=== PATIENT | female | born 1945 | race Caucasian/White ===

== ENCOUNTER 2016-06-23 14:45 | Emergency (ER) | payer OTHER ==
[~2016-06-23] VITALS: Ht 160 cm; Wt 51.1 kg
[~2016-06-23 14:45] MED LIST: ATV/1 PO; CMD5 PO; LEVO25TA PO
[2016-06-23 14:52] VITALS: TEMP 37.2; Ht 160 cm; Wt 51.1 kg
[2016-06-23] MEDS ORDERED: ENOX60IN SQ (15:55)
[2016-06-23] MEDS ORDERED: OMEP20CA9 PO (15:56)
[2016-06-23] MEDS ORDERED: METH500T37 PO (15:56)
[2016-06-23] MEDS ORDERED: PRED20TA PO (15:56)
--- NOTE | 2016-06-23 16:06 | DIAGNOSTIC IMAGING REPORT ---
CERVICAL SPINE CT CT DOSE: 185.77 mGy.cm HISTORY: Trauma. Pain. pain s/p fall TECHNIQUE: Multiaxial CT images of the cervical spine were performed and reformatted in the sagittal and coronal plane without the use of contrast. COMPARISON: None. FINDINGS: No fractures. No subluxation. Prevertebral soft tissues and the C1-C2 interval are intact. No pneumothorax. Moderate degenerative disc changes throughout. No evidence for compression deformity. Posterior arch shows no acute or traumatic. IMPRESSION: Degenerative change. No acute process. Electronically signed by: Fausto Castrejon M.D. 06/23/2016 4:05 PM Dictated Date/Time: 06/23/2016 4:02 PM
--- NOTE | 2016-06-23 16:54 | DIAGNOSTIC IMAGING REPORT ---
RIGHT SHOULDER MIN 2 VIEWS ROUTINE CLINICAL HISTORY: posterior pain s/p fall Right pain. Trauma. COMPARISON: None. DISCUSSION: The bones and joint spaces appear intact. There is no evidence of fracture, dislocation or bony disease. There is no evidence for soft tissue swelling. IMPRESSION: Negative study. Electronically signed by: Fausto Castrejon M.D. 06/23/2016 4:52 PM Dictated Date/Time: 06/23/2016 4:52 PM
--- NOTE | 2016-06-23 17:10 | EMERGENCY ROOM VISIT NOTE ---
ED Visit Note First contact with patient: 15:03 Staff note: I have reviewed the Patients chart and have discussed this case with my PA. I generally agree with the ED note and findings.
[2016-06-23] MEDS ORDERED: TRAM-10 PO (17:18)
--- NOTE | 2016-06-23 17:19 | EMERGENCY ROOM VISIT NOTE ---
History First contact with patient: 15:03 Chief Complaint: SHOULDER PAIN Stated Complaint: PAINFUL SHOULDER History of Present Illness The patient is a 70 year old female who presents to the Emergency Department by private vehicle for evaluation of pain to the RIGHT shoulder. The patient reports that she slipped on the steps well walking the snow 3 weeks ago waning on her back. She did not lose consciousness. She reports that she had immediate pain to the RIGHT shoulder as well as neck. She was seen by her primary care provider's office at the [facility] and was placed on a muscle relaxer. She had persistent pain. She followed up with [facility] and had x- rays performed of the neck and shoulder which were found to be unremarkable. The patient was provided prednisone which she has been taking to this point. She reports that she contacted the [facility] again today because she was having persistent pain. She was directed to the emergency Department for an orthopedic consultation. The patient denies any changes in her symptoms. She rates her current discomfort as a 9/10. The patient denies any headaches, dizziness, lightheadedness, numbness/weakness to extremities, chest pain, palpitations, short of breath, abdominal pain, nausea, or vomiting. Review of Systems A complete 10-point Review of Systems was discussed with the patient, with pertinent positives and negatives listed in the History of Present Illness. All remaining Review of Systems questions can be considered negative unless otherwise specified. Past Medical/Surgical History Medical Problems: (1) Hyperlipidemia Nec/Nos (2) Hyperthyroidism (3) Pulmonary emboli (4) Sinus infection Surgical Problems: (1) History of cholecystectomy Family History Cancer MOTHER BROTHER (lung) Heart disease FATHER MOTHER [place] FATHER MOTHER Social History Smoking Status: Former Smoker Smokeless Tobacco Use: No Alcohol Use: none Drug Use: none Marital Status: single Housing Status: lives alone Occupation Status: retired Current/Historical Medications Scheduled Enoxaparin (Lovenox), 60 MG SQ UD Levothyroxine Sodium (Synthroid), 25 MCG PO DAILY Prednisone (Prednisone), 20 MG PO BID Warfarin Sod (Coumadin), MG PO UD Scheduled PRN Lorazepam (Ativan), 1 MG PO HS PRN for Anxiety/Agitation Methocarbamol (Robaxin), 500 MG PO TID PRN for Muscle Spasms Omeprazole (Prilosec), 20 MG PO DAILY PRN for Heartburn Tramadol (Ultram), 1 TAB PO Q4H PRN for Pain Allergies Coded Allergies: Codeine (Verified Allergy, Mild, 06/23/16) Physical Exam Vital Signs Date Time Temp Pulse Resp B/P Pulse Ox O2 Delivery O2 Flow Rate FiO2 06/23/16 17:31 84 14 106/74 97 06/23/16 14:52 37.2 118 18 147/94 96 Room Air Pain Rating (0-10): 9 Physical Exam VITAL SIGNS - Vital signs and nursing notes were reviewed. GENERAL - 70-year-old female appearing her stated age and in noticeable discomfort throughout the exam. NECK - FROM of the cervical spine. No spinous process or paraspinal muscle tenderness to palpation. No nuchal rigidity. LUNGS - Chest wall symmetric without accessory muscle use, intercostals retractions, or central cyanosis. Normal vesicular breath sounds CTA B/L. No wheezes, rales, or rhonchi appreciated. CARDIAC - RRR with S1/S2. No murmur, rubs, or gallops appreciated. MUSCULOSKELETAL - Active ROM of the RIGHT shoulder was limited in all directions. Greater than 90 of abduction. No step-off deformities of the clavicle were palpable. No tenderness over the AC joint with palpation. No tenderness to palpation at the bicepital insertion. No tenderness to palpation over the deltoid. Tenderness to palpation and muscle spasm noted to the RIGHT rhomboid muscle distribution. NEUROLOGIC - SENSORY: Spinothalamic tract was found to be intact with ability to discriminate sharp versus dull sensation at the level of the RIGHT side of the neck down to the fingertips. No sensory deficits of the dorsal column were appreciated utilizing light touch for evaluation. VASCULAR - Capillary refill was brisk. +3/5 radial pulse palpated. Medical Decision & Procedures ER Provider Diagnostic Interpretation: Radiological imaging and reports were reviewed by myself. Radiologist's Interpretation as follows: RIGHT SHOULDER MIN 2 VIEWS ROUTINE CLINICAL HISTORY: posterior pain s/p fall Right pain. Trauma. COMPARISON: None. DISCUSSION: The bones and joint spaces appear intact. There is no evidence of fracture, dislocation or bony disease. There is no evidence for soft tissue swelling. IMPRESSION: Negative study. CERVICAL SPINE CT CT DOSE: 185.77 mGy.cm HISTORY: Trauma. Pain. pain s/p fall TECHNIQUE: Multiaxial CT images of the cervical spine were performed and reformatted in the sagittal and coronal plane without the use of contrast. COMPARISON: None. FINDINGS: No fractures. No subluxation. Prevertebral soft tissues and the C1-C2 interval are intact. No pneumothorax. Moderate degenerative disc changes throughout. No evidence for compression deformity. Posterior arch shows no acute or traumatic. IMPRESSION: Degenerative change. No acute process. ED Course Patient was seen and evaluate by myself. I had a lengthy conversation with the patient regarding her symptoms. CT of the cervical spine and x-ray of the RIGHT shoulder was obtained. Imaging results as above. Imaging results were discussed with the patient who acknowledges understanding. I did discuss the case with case management who will work on setting the patient up with outpatient follow-up with orthopedic surgery. She was provided Ultram for breakthrough pain at home. She was educated on worrisome symptoms for return visit to the emergency department. Patient discharged home in good condition. Medical Decision Given the patient's presentation and exam findings, I did elect to perform the above-mentioned workup. The patient presents today with ongoing symptoms of pain after sustaining a mechanical fall 3-4 weeks ago. She has no focal neurological deficits. Imaging studies are otherwise unremarkable. The patient does have palpable muscle tenderness on exam. She will be provided pain medication for home and case management set her up with an appointment with orthopedic surgery for continued follow-up. Patient was educated on worrisome symptoms for return visit to the emergency department. Patient discharged home in good condition. In the evaluation and treatment of this patient, the following differential diagnoses were considered: Musculoskeletal Strain, Discitis, Cervical Spine Fracture, Cervical Spine Dislocation, Cervical Spine Subluxation, Cervical Spondylosis, Fibromyalgia, Osteoarthritis, Polymyalgia Rheumatica, Psychogenic Pain Disorder, Tumor of Soft Tissue or Spine, Shoulder Contusion, Shoulder Fracture, Shoulder Dislocation, Thoracic Outlet Syndrome, Adhesive Capsulitis, Rotator Cuff Tear, Proximal Clavicle Head Fracture, Apical Pneumonia, Pneumothorax, Hemothorax, or TB. Impression Primary Impression: Rhomboid muscle strain Additional Impressions: Neck pain Fall Departure Information Dispostion Home / Self-Care Condition GOOD Prescriptions Tramadol (Ultram) 50 Mg Tab 1 TAB PO Q4H Y for Pain, #20 TAB For Initial Treatment Prov: Evin Leo PA-C 06/23/16 Referrals Monica Zuleta M.D. (PCP) Patient Instructions My [facility] Additional Instructions You have been treated in the Emergency Department for Shoulder Pain. You have been prescribed Ultram to be used for pain control. You cannot drive or consume alcohol while on this medicine. This medicine should only be used for pain that cannot be controlled with [id number] pain medicines. For pain control, you can use the following [id number] medicines (if >12 yo): - Regular strength (325mg/tab) Tylenol (acetaminophen) 2 tabs every 4-6 hours as needed. Do not exceed 12 tablets in a 24 hour period. Avoid taking more than 4 grams (4000 mg) of Tylenol per day. This includes any other sources of acetaminophen you may take on a regular basis. - Regular strength (200 mg/tab) Advil (ibuprofen) 1-2 tabs every 4-6 hours as needed. Do not exceed a dose of 3200 mg per day. If this is a recent injury (<24 hrs), ice can be applied to the area of pain for the first 3 days to help decrease pain and inflammation. Follow-up with orthopedic surgery as discussed. Return to the Emergency Department if your current symptoms worsen despite treatment course outlined above, or if you develop any of the following symptoms : intractable pain despite aforementioned treatment course or new onset of numbness or tingling of the arm. Problem Qualifiers Primary Impression: Rhomboid muscle strain Encounter type: initial encounter Qualified Codes: S29.012A - Strain of muscle and tendon of back wall of thorax, initial encounter Additional Impressions: Fall Encounter type: initial encounter Qualified Codes: W19.XXXA - Unspecified fall, initial encounter
[2016-06-23 17:31] VITALS: BP 106/74; PULSE 84; O2SAT 97
== END 2016-06-23 17:32 | disposition home or self-care (01) ==
LOC: C.EDB 14:46 → C.EDC 17:32
DX: S46.811A Strain of other muscles, fascia and tendons at shoulder and upper arm level, right arm, initial encounter (principal); M54.2 Cervicalgia; W00.0XXA Fall on same level due to ice and snow, initial encounter; E78.5 Hyperlipidemia, unspecified; E05.90 Thyrotoxicosis, unspecified without thyrotoxic crisis or storm; Z86.711 Personal history of pulmonary embolism; Z82.49 Family history of ischemic heart disease and other diseases of the circulatory system; Z80.9 Family history of malignant neoplasm, unspecified; Z87.891 Personal history of nicotine dependence; Z79.01 Long term (current) use of anticoagulants; Z79.52 Long term (current) use of systemic steroids; Z79.899 Other long term (current) drug therapy

== ENCOUNTER 2016-12-04 14:08 | Observation (INO) | payer OTHER ==
[~2016-12-04] VITALS: Ht 162.6 cm; Wt 53.8 kg
[~2016-12-04 14:08] MED LIST changes: +ENOX60IN SQ; +METH500T37 PO; +OMEP20CA9 PO; +PRED20TA PO; +TRAM-10 PO
[2016-12-04] MEDS ORDERED: SODIUM CHLORIDE 0.9% 1000ML 1,000 ML IV STA (14:24)
[2016-12-04] MEDS ORDERED: SODIUM CHLORIDE 0.9% 1000ML 250 ML IV STA (14:24)
[2016-12-04] MEDS ORDERED: CYAN500T PO (14:30)
[2016-12-04] MEDS ORDERED: RIVA1TAB4 PO (14:30)
[2016-12-04] MEDS ORDERED: ACET-1256 PO (14:30)
[2016-12-04 14:47] LABS: HEMATOCRIT 38.2 % (37-47); MEAN CELL VOLUME 93.9 fL (80-100); MEAN CORPUSCULAR HEMOGLOBIN 33.2 pg (25-34); MEAN CORPUSCULAR HGB CONC 35.3 g/dl (32-36); MEAN PLATELET VOLUME 9.1 fL (7.4-10.4); PLATELET COUNT 133 K/uL (130-400); RED BLOOD COUNT 4.07 M/uL (4.2-5.4); WHITE BLOOD COUNT 9.28 K/uL (4.8-10.8)
--- NOTE | 2016-12-04 14:49 | EMERGENCY ROOM VISIT NOTE ---
History Report prepared by Singh: Lj Alvarez Under the Supervision of: Dr. Raffi Tony M.D. First contact with patient: 14:17 Chief Complaint: WEAKNESS Stated Complaint: WEAKNESS History of Present Illness The patient is a 70 year old female who presents to the Emergency Room with complaints of constant right sided weakness occurring prior to arrival. The patient states that she got right shoulder surgery for a torn rotator cuff. The patient states that she was under anesthesia and she had a block in the neck. The patient states that she felt fine prior to surgery around 1030 this morning , and she states that afterwards she was worried about a facial droop, and she was having some right sided weakness and numbness. The patient additionally states that she has been nauseous. The patient denies any chest pain shortness of breath, trouble swallowing, and headache. The patient states that she is usually on blood thinners for blood clots in the lungs, though she stopped them for surgery. Source of History: patient, treating provider Onset: prior to arrival Position: other (right side) Quality: other (weakness) Timing: constant Associated Symptoms: + nausea, + weakness, + numbness, No headache, No SOB Review of Systems See HPI for pertinent positives & negatives. A total of 10 systems reviewed and were otherwise negative. Past Medical & Surgical Medical Problems: (1) Hyperlipidemia Nec/Nos (2) Hyperthyroidism (3) Pulmonary emboli (4) Right sided weakness (5) Sinus infection Surgical Problems: (1) History of cholecystectomy Old medical records were reviewed. Nurse's notes were reviewed and I agree with. Family History Cancer MOTHER BROTHER (lung) Heart disease FATHER MOTHER [place] FATHER MOTHER Social History Smoking Status: Former Smoker Alcohol Use: none Drug Use: none Marital Status: single Housing Status: lives alone Occupation Status: retired Current/Historical Medications Scheduled Acetaminophen (Tylenol), 500 MG PO DIRECTED Cyanocobalamin (Vitamin B-12), 500 MCG PO DAILY Levothyroxine Sodium (Synthroid), 25 MCG PO DAILY Rivaroxaban (Xarelto), 20 MG PO DAILY Scheduled PRN Lorazepam (Ativan), 1 MG PO BID PRN for Anxiety/Agitation Methocarbamol (Robaxin), 500 MG PO TID PRN for Muscle Spasms Allergies Coded Allergies: Codeine (Verified Allergy, Mild, 06/23/16) Physical Exam Vital Signs Date Time Temp Pulse Resp B/P (MAP) Pulse Ox O2 Delivery O2 Flow Rate FiO2 12/04/16 17:21 96 Room Air 12/04/16 16:41 90 18 130/79 96 12/04/16 15:14 78 134/85 96 12/04/16 14:29 80 12/04/16 14:18 36.7 79 18 146/91 95 Room Air Physical Exam General: Non-ill appearing older female in no acute distress. HEENT: Normal cephalic atraumatic. Pupils are equal round and reactive to light. Extraocular movements are intact. Oropharynx is pink with moist mucous membranes. No swelling of the mouth lips or tongue. Neck: Supple with a midline trachea. No meningeal signs or stiffness, no JVD or bruits. No Stridor. Chest: Clear to auscultation bilaterally. No wheezes or rhonchi. No increased work of breathing. Heart: regular rate and rhythm. Abdomen: Soft nontender, nondistended without rebound guarding or rigidity. Extremities: Bulky bandage on the right shoulder from shoulder surgery done today. Right hand had some numbness and weakness, but she can squeeze and move her fingers. No cyanosis clubbing or edema. No calf tenderness or assymetry Spine/Back. Non tender to palpation. No CVA tenderness Skin: Good turgor without rashes. Neurologic exam: No significant facial droop or assymetry. Cranial nerves two through 12 are intact. Motor and sensation are intact and symmetrical throughout. Medical Decision & Procedures ER Provider Diagnostic Interpretation: Radiology results as stated below per my review and radiologist interpretation: HEAD WITHOUT CONTRAST (CT) CT DOSE: 638.56 mGycm HISTORY: Mental status change 05/04/2016 eval for CVA TECHNIQUE: Multiaxial CT images of the head were performed without the use of intravenous contrast. A dose lowering technique was utilized adhering to the principles of ALARA. Comparison: 05/04/2016 Findings: The paranasal sinuses and mastoid air cells are clear. The calvarium and skull base are intact. The ventricles and sulci are within normal limits. There is no mass, hematoma, midline shift, or acute infarct. Mild chronic small vessel change of aging Impression: No acute intracranial abnormality. The above report was generated using voice recognition software. It may contain grammatical, syntax or spelling errors. Electronically signed by: Fausto Castrejon M.D. 12/04/2016 3:16 PM Dictated Date/Time: 12/04/2016 3:14 PM CHEST ONE VIEW PORTABLE CLINICAL HISTORY: Atypical chest pain COMPARISON STUDY: 05/04/2016 FINDINGS: The cardiac and mediastinal contours are normal. There is no evidence of focal pulmonary consolidation. There is no evidence of failure. No pleural effusions are visualized.[ IMPRESSION: No active disease in the chest. Electronically signed by: Gian Arroyo M.D. 12/04/2016 2:50 PM Dictated Date/Time: 12/04/2016 2:50 PM Laboratory Results 12/04/16 14:31 Red Blood Count 4.07, Mean Corpuscular Volume 93.9, Mean Corpuscular Hemoglobin 33.2, Mean Corpuscular Hemoglobin Concent 35.3, Mean Platelet Volume 9.1, Neutrophils (%) (Auto) 90.8, Lymphocytes (%) (Auto) 7.1, Monocytes (%) (Auto) 1.4, Eosinophils (%) (Auto) 0.2, Basophils (%) (Auto) 0.3, Neutrophils # (Auto) 8.42, Lymphocytes # (Auto) 0.66, Monocytes # (Auto) 0.13, Eosinophils # (Auto) 0.02, Basophils # (Auto) 0.03 12/04/16 14:31 Test 12/04/16 14:31 12/04/16 14:38 White Blood Count 9.28 K/uL (4.8-10.8) Red Blood Count 4.07 M/uL (4.2-5.4) Hemoglobin 13.5 g/dL (12.0-16.0) Hematocrit 38.2 % (37-47) Mean Corpuscular Volume 93.9 fL (80-100) Mean Corpuscular Hemoglobin 33.2 pg (25-34) Mean Corpuscular Hemoglobin Concent 35.3 g/dl (32-36) Platelet Count 133 K/uL (130-400) Mean Platelet Volume 9.1 fL (7.4-10.4) Neutrophils (%) (Auto) 90.8 % Lymphocytes (%) (Auto) 7.1 % Monocytes (%) (Auto) 1.4 % Eosinophils (%) (Auto) 0.2 % Basophils (%) (Auto) 0.3 % Neutrophils # (Auto) 8.42 K/uL (1.4-6.5) Lymphocytes # (Auto) 0.66 K/uL (1.2-3.4) Monocytes # (Auto) 0.13 K/uL (0.11-0.59) Eosinophils # (Auto) 0.02 K/uL (0-0.5) Basophils # (Auto) 0.03 K/uL (0-0.2) RDW Standard Deviation 42.1 fL (36.4-46.3) RDW Coefficient of Variation 12.3 % (11.5-14.5) Immature Granulocyte % (Auto) 0.2 % Immature Granulocyte # (Auto) 0.02 K/uL (0.00-0.02) Prothrombin Time 10.3 SECONDS (9.0-12.0) Prothromb Time International Ratio 1.0 (0.9-1.1) Activated Partial Thromboplast Time 23.4 SECONDS (21.0-31.0) Partial Thromboplastin Ratio 0.9 Anion Gap 5.0 mmol/L (3-11) Est Creatinine Clear Calc Drug Dose 60.4 ml/min Estimated GFR () 92.0 Estimated GFR (Non- 79.3 BUN/Creatinine Ratio 21.9 (10-20) Calcium Level 8.5 mg/dl (8.5-10.1) Total Bilirubin 0.4 mg/dl (0.2-1) Direct Bilirubin < 0.1 mg/dl (0-0.2) Aspartate Amino Transf (AST/SGOT) 23 U/L (15-37) Alanine Aminotransferase (ALT/SGPT) 34 U/L (12-78) Alkaline Phosphatase 59 U/L (45-117) Total Protein 7.2 gm/dl (6.4-8.2) Albumin 3.9 gm/dl (3.4-5.0) Lipase 169 U/L (73-393) Bedside Troponin I < 0.030 ng/ml (0-0.045) Laboratory studies as stated above per my review. Medications Administered Medications (Trade) Dose Ordered Sig/Lucas Route Start Time Stop Time Status Last Admin Dose Admin Sodium Chloride 1,000 ml @ 100 mls/hr Q10H STAT IV 12/04/16 14:24 12/05/16 00:23 12/04/16 14:24 100 MLS/HR ED Course 1417: Past medical records reviewed. The patient was evaluated in room A4, and a complete history and physical examination were performed. 1424: Sodium Chloride 1000 ml @ 100 mls/hr IV, Sodium Chloride 250 ml @ 999 mls/ hr IV 1450: I revaluated the patient, and she was resting. 1531: Aspirin Chew 324mg PO 1542: Discussed the patient's case with Dr. Haley. The patient will be evaluated for further management. Medical Decision Differentials include, but are not limited to; CVA, complication from anesthesia , TIA, electrolyte or metabolic abnormality. This patient comes in as described above. She was placed in room A4. She is here for treatment and evaluation of numbness in the right side of her face and weakness. She also has numbness right arm this occurred after surgery today on her right shoulder. She had general anesthesia and a local block. No chest pain or shortness of breath. Her face seems to be doing better. It is difficult to assess her arm because she had a nerve block. CAT scan of her head was unremarkable. She has a normal neurologic exam at this point except for the tingling in her arm and may be some minimal residual changes on the right side of the face. I do not think she is a TPA candidate as she has had surgery today and her symptoms are better. I think most likely her from the injection and it may have been that the lidocaine did migrate up into her face and potentially numbed facial nerve a little bit. She's had nothing shows acute coronary syndrome or arrhythmia infection. I do think she needs to be admitted for observation tonight. I did order aspirin 324 mg chewable. She will be admitted for further treatment and evaluation. Medication Reconcilliation Current Medication List: was personally reviewed by me Blood Pressure Screening Patient's blood pressure: Normal blood pressure Consults Time Called: 1537 Consulting Physician: Dr. Haley Returned Call: [phone] Discussed the patient's case with Dr. Haley. The patient will be evaluated for further management. Impression Primary Impression: Right facial numbness Additional Impression: Status post shoulder surgery Scribe Attestation The scribe's documentation has been prepared under my direction and personally reviewed by me in its entirety. I confirm that the note above accurately reflects all work, treatment, procedures, and medical decision making performed by me. Departure Information Dispostion Being Evaluated By Hospitalist Referrals Monica Zuleta M.D. (PCP) Patient Instructions My [facility] Problem Qualifiers
[2016-12-04 14:55] LABS: PARTIAL THROMBOPLASTIN RATIO 0.9; PROTHROMBIN TIME (PATIENT) 10.3 SECONDS (9.0-12.0)
[2016-12-04 15:06] LABS: ALT/SGPT 34 U/L (12-78); BLOOD UREA NITROGEN 17 mg/dl (7-18); BUN/CREATININE RATIO 21.9 (10-20); CALCIUM 8.5 mg/dl (8.5-10.1); CARBON DIOXIDE 26 mmol/L (21-32); CHLORIDE 108 mmol/L (98-107); CREATININE 0.77 mg/dl (0.60-1.20); GLUCOSE 122 mg/dl (70-99); POTASSIUM 3.8 mmol/L (3.5-5.1); SODIUM 139 mmol/L (136-145)
[2016-12-04 15:09] LABS: ALKALINE PHOSPHATASE 59 U/L (45-117); AST/SGOT 23 U/L (15-37)
[2016-12-04 15:11] LABS: BASO % 0.3 %; BASO ABS # 0.03 K/uL (0-0.2); COMPLETE YES; EOS % 0.2 %; IG% 0.2 %; LYMPH % 7.1 %; LYMPH ABS # 0.66 K/uL (1.2-3.4); MONO % 1.4 %; NEUT % 90.8 %
--- NOTE | 2016-12-04 15:17 | DIAGNOSTIC IMAGING REPORT ---
HEAD WITHOUT CONTRAST (CT) CT DOSE: 638.56 mGycm HISTORY: Mental status change 05/04/2016 eval for CVA TECHNIQUE: Multiaxial CT images of the head were performed without the use of intravenous contrast. A dose lowering technique was utilized adhering to the principles of ALARA. Comparison: 05/04/2016 Findings: The paranasal sinuses and mastoid air cells are clear. The calvarium and skull base are intact. The ventricles and sulci are within normal limits. There is no mass, hematoma, midline shift, or acute infarct. Mild chronic small vessel change of aging Impression: No acute intracranial abnormality. The above report was generated using voice recognition software. It may contain grammatical, syntax or spelling errors. Electronically signed by: Fausto Castrejon M.D. 12/04/2016 3:16 PM Dictated Date/Time: 12/04/2016 3:14 PM
[2016-12-04] MEDS ORDERED: ASPIRIN 81 MG CHEW PO STA (15:31)
[2016-12-04 17:21] VITALS: O2SAT 96; Ht 162.6 cm; Wt 53.8 kg
[2016-12-04] MEDS ORDERED: METHOCARBAMOL 500 MG TAB PO PRN (17:45)
[2016-12-04] MEDS ORDERED: LORAZEPAM 1 MG TAB PO PRN (17:45)
[2016-12-04] MEDS ORDERED: IV FLUIDS COMPLETED PRN (18:15)
[2016-12-04 19:00] VITALS: BP 143/85; PULSE 91; TEMP 36.5; O2SAT 96
[2016-12-04] MEDS ORDERED: NSS + 20MEQ KCL 1000ML 1,000 ML IV SCH (19:30)
--- NOTE | 2016-12-04 19:47 | Medical Student: [facility] ---
Med Student History & Physical Date & Time of Service: Dec 04, 2016 at 19:41 Chief Complaint: Right Sided Weakness Primary Care Physician: No Doctor, Assigned History of Present Illness Source: patient This is a 70yo female with a history of pulmonary embolism on anticoagulation, hypothyroidism and vertigo who presented to the ED for weakness/ambulatory dysfunction following rotator cuff surgery earlier today with Dr. Johnson. As she was walking to the bathroom with a nurse after surgery, she was observed to be veering off to her right side and developed a right-sided facial droop. She had no loss of consciousness, focal weakness or slurring of speech. She did receive a nerve block at the right upper extremity for surgery. Head CT negative. She has been on Xarelto since March 2016 for incidental findings of pulmonary emobli. Past Medical/Surgical History Medical Problems: (1) Dehydration Status: Acute (2) Fall Status: Acute (3) Headache Status: Acute (4) Neck pain Status: Acute (5) Pulmonary embolism Status: Acute (6) Rhomboid muscle strain Status: Acute (7) Right facial numbness Status: Acute Social History Problems: (1) Status post shoulder surgery Status: Acute Social History Smoking Status: Former Smoker Alcohol Use: none Drug Use: none Marital Status: single Housing status: lives alone (2-story house in [place] with 5+ steps to enter ) Occupational Status: retired Allergies Coded Allergies: Codeine (Verified Allergy, Mild, 06/23/16) Medications Acetaminophen (Tylenol), 500 MG PO DIRECTED Cyanocobalamin (Vitamin B-12), 500 MCG PO DAILY Levothyroxine Sodium (Synthroid), 25 MCG PO DAILY Lorazepam (Ativan), 1 MG PO BID PRN for Anxiety/Agitation Methocarbamol (Robaxin), 500 MG PO TID PRN for Muscle Spasms Rivaroxaban (Xarelto), 20 MG PO DAILY Review of Systems Constitutional: No fever, No chills Eyes: No worsening of vision, No diplopia ENT: No sore throat, No trouble swallowing Respiratory: No cough, No wheezing, No shortness of breath Cardiovascular: No chest pain, No palpitations Abdomen: No pain, No nausea, No vomiting Musculoskeletal: + joint pain (right posterior shoulder pain), No calf pain Genitourinary - Female: No urinary frequency, No urinary urgency, No urinary incontinence Neurologic: + numbness/tingling (right arm and hand), + vertigo, No paralysis Physical Exam Vital Signs (24 Hours) Date Time Temp Pulse Resp B/P (MAP) Pulse Ox O2 Delivery O2 Flow Rate FiO2 12/04/16 18:21 92 16 131/84 96 12/04/16 17:21 96 Room Air 12/04/16 16:41 90 18 130/79 96 12/04/16 15:14 78 134/85 96 12/04/16 14:29 80 12/04/16 14:18 36.7 79 18 146/91 95 Room Air General Appearance: + mild distress, + thin Head: normocephalic, atraumatic Eyes: normal inspection, PERRL, EOMI ENT: normal ENT inspection, hearing grossly normal, pharynx normal, + pertinent finding (missing upper dentures) Neck: supple, no adenopathy, no carotid bruits Respiratory/Chest: lungs clear, normal breath sounds, no respiratory distress, no accessory muscle use Cardiovascular: regular rate, rhythm, no gallop, no murmur, normal peripheral pulses Abdomen/GI: normal bowel sounds, non tender, soft Extremities/Musculoskelatal: normal inspection, no calf tenderness Neurologic/Psych: sales hunter II-XII nml as tested, no motor/sensory deficits, alert, normal mood/affect, oriented x 3 Cranial nerves I: not tested II, III, IV, : PERRLA, EOMI V: sensation intact and symmetrical V1, V2, V3 VII: symmetrical, no facial droop VIII: hearing grossly intact bilaterally IX, X: swallow grossly intact, phonation normal XI: shoulder shrug not tested, able to turn head both directions XII: tongue protrudes in the midline Strength: RUE: not tested LUE: 5/5 all muscle groups RLE: 5/5 all muscle groups LLE: 5/5 all muscle groups Sensation: grossly intact BUE and BLE Reflexes: RUE not tested LUE 2+ biceps, triceps, brachioradialis RLE: 2+ patellar and Achilles reflexes LLE 2+ patellar and Achilles reflexes Cerebellar: Normal [id number] Romberg not tested Gait: Not tested Diagnostics Laboratory Results Results Past 24 Hours Test 12/04/16 14:31 12/04/16 14:38 Range/Units White Blood Count 9.28 4.8-10.8 K/uL Red Blood Count 4.07 4.2-5.4 M/uL Hemoglobin 13.5 12.0-16.0 g/dL Hematocrit 38.2 37-47 % Mean Corpuscular Volume 93.9 80-100 fL Mean Corpuscular Hemoglobin 33.2 25-34 pg Mean Corpuscular Hemoglobin Concent 35.3 32-36 g/dl Platelet Count 133 130-400 K/uL Mean Platelet Volume 9.1 7.4-10.4 fL Neutrophils (%) (Auto) 90.8 % Lymphocytes (%) (Auto) 7.1 % Monocytes (%) (Auto) 1.4 % Eosinophils (%) (Auto) 0.2 % Basophils (%) (Auto) 0.3 % Neutrophils # (Auto) 8.42 1.4-6.5 K/uL Lymphocytes # (Auto) 0.66 1.2-3.4 K/uL Monocytes # (Auto) 0.13 0.11-0.59 K/uL Eosinophils # (Auto) 0.02 0-0.5 K/uL Basophils # (Auto) 0.03 0-0.2 K/uL RDW Standard Deviation 42.1 36.4-46.3 fL RDW Coefficient of Variation 12.3 11.5-14.5 % Immature Granulocyte % (Auto) 0.2 % Immature Granulocyte # (Auto) 0.02 0.00-0.02 K/uL Prothrombin Time 10.3 9.0-12.0 SECONDS Prothromb Time International Ratio 1.0 0.9-1.1 Activated Partial Thromboplast Time 23.4 21.0-31.0 SECONDS Partial Thromboplastin Ratio 0.9 Sodium Level 139 136-145 mmol/L Potassium Level 3.8 3.5-5.1 mmol/L Chloride Level 108 98-107 mmol/L Carbon Dioxide Level 26 21-32 mmol/L Anion Gap 5.0 3-11 mmol/L Blood Urea Nitrogen 17 7-18 mg/dl Creatinine 0.77 0.60-1.20 mg/dl Est Creatinine Clear Calc Drug Dose 60.4 ml/min Estimated GFR () 92.0 Estimated GFR (Non- 79.3 BUN/Creatinine Ratio 21.9 10-20 Random Glucose 122 70-99 mg/dl Calcium Level 8.5 8.5-10.1 mg/dl Total Bilirubin 0.4 0.2-1 mg/dl Direct Bilirubin < 0.1 0-0.2 mg/dl Aspartate Amino Transf (AST/SGOT) 23 15-37 U/L Alanine Aminotransferase (ALT/SGPT) 34 12-78 U/L Alkaline Phosphatase 59 45-117 U/L Total Protein 7.2 6.4-8.2 gm/dl Albumin 3.9 3.4-5.0 gm/dl Lipase 169 73-393 U/L Bedside Troponin I < 0.030 0-0.045 ng/ml Impression Assessment and Plan This is a 70yo female with a history of pulmonary embolism on anticoagulation, hypothyroidism and vertigo who presented to the ED for weakness/ambulatory dysfunction following rotator cuff surgery earlier today. She has since returned to baseline. Head CT was negative for acute intracranial pathology. At this time she will be admitted for observation on the medical floor. Her episode of ambulatory dysfunction was most likely due to post-op weakness though the differential includes stroke, TIA, and chronic back pain. Plan: 1. Weakness/ambulatory dysfunction s/p rotator cuff surgery, on anticoagulation for hx of PE (stopped for surgery) -Neurochecks [id number] -Vitals [id number] -MRI head ordered for 12/05/16 r/o intracranial bleed 2. Hypothyroidism -Levothyroxine 25mcg PO daily 3. Anxiety -PRN Lorazepam 1mg PO BID PRN anxiety 5. Pain -PRN Tylenol 650mg PO [id number] PRN pain -PRN Robaxin 500mg PO TID PRN spasms 6. FEN/GI -vitamin B12 500mcg PO daily 7. Diet -Regular diet 8. DVT prophylaxis -HOLD Xarelto as patient is post-op 9. Disposition -Location: home -Date: 12/05/16 Level of Care Med/Surg Advanced Directives Existing Living Will: No Existing Power of Registration Specialist: No DVT Prophylaxis other (held as patient is post-op and to r/o hemorrhagic stroke) Prophylaxis Contraindication: Surgical contraindication
[2016-12-04 20:29] VITALS: O2SAT 96
[2016-12-04] MEDS: ACETAMINOPHEN 325 MG TAB PO PRN (21:09)
[2016-12-05 00:01] VITALS: BP 117/71; PULSE 90; TEMP 36.3; O2SAT 98
--- NOTE | 2016-12-05 02:54 | History and Physical ---
History & Physical Date & Time of Service: Dec 05, 2016 at 02:39. The patient was examined on 12/04/2016. Chief Complaint: Right Sided Weakness Primary Care Physician: No Doctor, Assigned History of Present Illness Source: patient, hospital records The patient is a 70-year-old female who is referred to the emergency department after having right rotator cuff surgery performed at [facility] with general anesthesia and a nerve block in the neck, and upon awakening was noted to have right arm weakness, right facial droop and difficulty with ambulation. Upon discussion with the patient, she notes a pre-existing facial asymmetry, and does have intermittent issues with ambulation for which she takes meclizine, but she is concerned about the loss of strength and sensation in her right arm. She has had some nausea since awakening. She denies chest pain, shortness of breath, fevers, chills, headache, difficulty with speech, difficulty swallowing, left arm or leg weakness. Past Medical/Surgical History Medical Problems: (1) Hypothyroidism Status: Chronic 2. Vitamin B12 deficiency 3. Pulmonary emboli 4. Hyperlipidemia 5. Chronic anticoagulation with Xarelto Surgical Problems: (1) History of cholecystectomy Status: Resolved Family History Cancer MOTHER BROTHER (lung) Heart disease FATHER MOTHER VA FATHER MOTHER Social History Smoking Status: Former Smoker Smokeless Tobacco Use: No Alcohol Use: none Drug Use: none Marital Status: single Housing status: lives alone (2-story house in [place] with 5+ steps to enter ) Occupational Status: retired Immunizations History of Influenza Vaccine: Unknown History of Tetanus Vaccine?: Unknown History of Pneumococcal: Unknown History of Hepatitis B Vaccine: Unknown Multi-Drug Resistant Organisms History of MDRO: No Allergies Coded Allergies: Codeine (Verified Allergy, Mild, 06/23/16) Home Medications Scheduled Acetaminophen (Tylenol), 500 MG PO DIRECTED Cyanocobalamin (Vitamin B-12), 500 MCG PO DAILY Levothyroxine Sodium (Synthroid), 25 MCG PO DAILY Rivaroxaban (Xarelto), 20 MG PO DAILY Scheduled PRN Lorazepam (Ativan), 1 MG PO BID PRN for Anxiety/Agitation Methocarbamol (Robaxin), 500 MG PO TID PRN for Muscle Spasms Review of Systems The patient denies chest pain, palpitations, shortness of breath, cough, lower extremity swelling, vision change, hearing change, sore throat, fevers, chills, sweats, weight change, vomiting, abdominal pain, pelvic pain, blood in urine or stool, dysuria, urinary frequency or urgency, headache, memory loss, rash, abnormal bruising or bleeding, generalized weakness, generalized arthralgias or myalgias, night sweats, or allergy symptoms. The review of systems is otherwise negative other than for that already noted above, and at least 10 systems have been reviewed. Physical Exam Vital Signs Date Time Temp Pulse Resp B/P (MAP) Pulse Ox O2 Delivery O2 Flow Rate FiO2 12/05/16 00:01 36.3 90 20 117/71 (86) 98 Room Air 12/05/16 00:00 Room Air 12/04/16 20:29 96 Room Air 12/04/16 19:00 36.5 91 20 143/85 (104) 96 Room Air 12/04/16 18:21 92 16 131/84 96 12/04/16 17:21 96 Room Air 12/04/16 16:41 90 18 130/79 96 12/04/16 15:14 78 134/85 96 12/04/16 14:29 80 12/04/16 14:18 36.7 79 18 146/91 95 Room Air The patient is awake, well-developed and adequately nourished, alert and oriented 3, right facial droop, lying in bed and in no acute distress. HEENT--PERRL, EOMI, mucous membranes and oropharynx dry. Neck--supple, no JVD or bruits, thyroid normal, trachea midline, no adenopathy. Heart--normal S1 and S2, no extra beats, no murmurs, rubs or gallops. Lungs--clear bilaterally with good air movement, no respiratory distress, no accessory muscle use. Abdomen--normal bowel sounds and soft, nontender and nondistended, no hernias or masses, no organomegaly. Extremities--right shoulder postsurgical wrap. Dermatologic--normal skin turgor, normal color, warm and dry, no abnormal lymph nodes, no rash. Neurologic--cranial nerves II through XII grossly intact except for facial droop. 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 Psychiatric--normal affect. Diagnostics Laboratory Results Results Past 24 Hours Test 12/04/16 14:31 12/04/16 14:38 Range/Units White Blood Count 9.28 4.8-10.8 K/uL Red Blood Count 4.07 4.2-5.4 M/uL Hemoglobin 13.5 12.0-16.0 g/dL Hematocrit 38.2 37-47 % Mean Corpuscular Volume 93.9 80-100 fL Mean Corpuscular Hemoglobin 33.2 25-34 pg Mean Corpuscular Hemoglobin Concent 35.3 32-36 g/dl Platelet Count 133 130-400 K/uL Mean Platelet Volume 9.1 7.4-10.4 fL Neutrophils (%) (Auto) 90.8 % Lymphocytes (%) (Auto) 7.1 % Monocytes (%) (Auto) 1.4 % Eosinophils (%) (Auto) 0.2 % Basophils (%) (Auto) 0.3 % Neutrophils # (Auto) 8.42 1.4-6.5 K/uL Lymphocytes # (Auto) 0.66 1.2-3.4 K/uL Monocytes # (Auto) 0.13 0.11-0.59 K/uL Eosinophils # (Auto) 0.02 0-0.5 K/uL Basophils # (Auto) 0.03 0-0.2 K/uL RDW Standard Deviation 42.1 36.4-46.3 fL RDW Coefficient of Variation 12.3 11.5-14.5 % Immature Granulocyte % (Auto) 0.2 % Immature Granulocyte # (Auto) 0.02 0.00-0.02 K/uL Prothrombin Time 10.3 9.0-12.0 SECONDS Prothromb Time International Ratio 1.0 0.9-1.1 Activated Partial Thromboplast Time 23.4 21.0-31.0 SECONDS Partial Thromboplastin Ratio 0.9 Sodium Level 139 136-145 mmol/L Potassium Level 3.8 3.5-5.1 mmol/L Chloride Level 108 98-107 mmol/L Carbon Dioxide Level 26 21-32 mmol/L Anion Gap 5.0 3-11 mmol/L Blood Urea Nitrogen 17 7-18 mg/dl Creatinine 0.77 0.60-1.20 mg/dl Est Creatinine Clear Calc Drug Dose 60.4 ml/min Estimated GFR () 92.0 Estimated GFR (Non- 79.3 BUN/Creatinine Ratio 21.9 10-20 Random Glucose 122 70-99 mg/dl Calcium Level 8.5 8.5-10.1 mg/dl Total Bilirubin 0.4 0.2-1 mg/dl Direct Bilirubin < 0.1 0-0.2 mg/dl Aspartate Amino Transf (AST/SGOT) 23 15-37 U/L Alanine Aminotransferase (ALT/SGPT) 34 12-78 U/L Alkaline Phosphatase 59 45-117 U/L Total Protein 7.2 6.4-8.2 gm/dl Albumin 3.9 3.4-5.0 gm/dl Lipase 169 73-393 U/L Bedside Troponin I < 0.030 0-0.045 ng/ml Diagnostic Radiology Patient Name: PHILIP STEWARD Unit Number: [id number] Dictated: 12/04/161513 Transcribed: 12/04/161513 MS Printed Date/Time: [~ rep prt dt]/[~ rep prt tm] [~ rep ct labl] - [~ rep ct ivnm] [facility] [place] [address] Dictated: 12/04/161513 Transcribed: 12/04/161513 MS Printed Date/Time: [~ rep prt dt]/[~ rep prt tm] [~ rep ct labl] - [~ rep ct ivnm] HEAD WITHOUT CONTRAST (CT) CT DOSE: 638.56 mGycm HISTORY: Mental status change 05/04/2016 eval for CVA TECHNIQUE: Multiaxial CT images of the head were performed without the use of intravenous contrast. A dose lowering technique was utilized adhering to the principles of ALARA. Comparison: 05/04/2016 Findings: The paranasal sinuses and mastoid air cells are clear. The calvarium and skull base are intact. The ventricles and sulci are within normal limits. There is no mass, hematoma, midline shift, or acute infarct. Mild chronic small vessel change of aging Impression: No acute intracranial abnormality. The above report was generated using voice recognition software. It may contain grammatical, syntax or spelling errors. Electronically signed by: Fausto Castrejon M.D. 12/04/2016 3:16 PM Dictated Date/Time: 12/04/2016 3:14 PM The status of this report is Signed. Draft = Not yet reviewed or approved by Radiologist. Signed = Reviewed and approved by Radiologist. <AttendingPhy></AttendingPhy> <FamilyPhy>Monica Zuleta M.D.</FamilyPhy > <PrimaryPhy>Monica Zuleta M.D.</PrimaryPhy> <UnitNumber>[id number]</ UnitNumber> <VisitNumber>[id number]</VisitNumber> <PatientName>PHILIP STEWARD< /PatientName> <DateOfBirth>1945</DateOfBirth> <Location>[facility]</Location> < ServiceDate>12/04/16</ServiceDate> <MNE>ESINDI</MNE> <OrderingPhy>Raffi Tony M.D.</OrderingPhy> <OrderingPhyMNE>f rep ord dr jones</OrderingPhyMNE> < DictatingPhyMNE>f rep dict dr jones</DictatingPhyMNE> <CCListMNE>f rep ct mne</ CCListMNE> <AdmittingPhyMNE>f pt admit dr jones</AdmittingPhyMNE> <AttendingPhyMNE >f pt attend dr jones</AttendingPhyMNE> <ConsultingPhyMNE>f pt consult dr jones</ConsultingPhyMNE> <FamilyPhyMNE>f pt fam dr jones</FamilyPhyMNE> <OtherPhyMNE>f pt other dr jones</OtherPhyMNE> < PrimaryPhyMNE>f pt prim care dr jones</PrimaryPhyMNE> <ReferringPhyMNE>f pt referring dr jones</ReferringPhyMNE> Patient Name: PHILIP STEWARD Unit Number: [id number] Dictated: 12/04/161449 Transcribed: 12/04/161449 ARG Printed Date/Time: [~ rep prt dt]/[~ rep prt tm] [~ rep ct labl] - [~ rep ct ivnm] [facility] [place] [address] Dictated: 12/04/161449 Transcribed: 12/04/161449 ARG Printed Date/Time: [~ rep prt dt]/[~ rep prt tm] [~ rep ct labl] - [~ rep ct ivnm] CHEST ONE VIEW PORTABLE CLINICAL HISTORY: Atypical chest pain COMPARISON STUDY: 05/04/2016 FINDINGS: The cardiac and mediastinal contours are normal. There is no evidence of focal pulmonary consolidation. There is no evidence of failure. No pleural effusions are visualized.[ IMPRESSION: No active disease in the chest. Electronically signed by: Gian Arroyo M.D. 12/04/2016 2:50 PM Dictated Date/Time: 12/04/2016 2:50 PM The status of this report is Signed. Draft = Not yet reviewed or approved by Radiologist. Signed = Reviewed and approved by Radiologist. <AttendingPhy></AttendingPhy> <FamilyPhy>Monica Zuleta M.D.</FamilyPhy > <PrimaryPhy>Monica Zuleta M.D.</PrimaryPhy> <UnitNumber>[id number]</ UnitNumber> <VisitNumber>[id number]</VisitNumber> <PatientName>PHILIP STEWARD< /PatientName> <DateOfBirth>1945</DateOfBirth> <Location>[facility]</Location> < ServiceDate>12/04/16</ServiceDate> <MNE>ESINDI</MNE> <OrderingPhy>Raffi Tony M.D.</OrderingPhy> <OrderingPhyMNE>f rep ord dr jones</OrderingPhyMNE> < DictatingPhyMNE>f rep dict dr jones</DictatingPhyMNE> <CCListMNE>f rep ct mne</ CCListMNE> <AdmittingPhyMNE>f pt admit dr jones</AdmittingPhyMNE> <AttendingPhyMNE >f pt attend dr jones</AttendingPhyMNE> <ConsultingPhyMNE>f pt consult dr jones</ConsultingPhyMNE> <FamilyPhyMNE>f pt fam dr jones</FamilyPhyMNE> <OtherPhyMNE>f pt other dr jones</OtherPhyMNE> < PrimaryPhyMNE>f pt prim care dr jones</PrimaryPhyMNE> <ReferringPhyMNE>f pt referring dr jones</ReferringPhyMNE> Impression Assessment and Plan Neurologic symptoms of right arm numbness and weakness, right facial droop, and ambulatory dysfunction status post right rotator cuff surgery with general anesthesia and right cervical neck block--The patient will be admitted to telemetry for serial cardiac enzymes, cardiac rhythm monitoring and a 2-D echocardiogram with Dopplers.. Patient reports that the right facial droop may be preexistent, and difficulty with ambulation she has frequently for which she takes meclizine. The question is whether either the symptoms have been amplified. The patient was assessed by Dr. Johnson in the emergency department and felt that the right arm symptoms are likely secondary to the nerve block but would like her to be admitted and followed. Patient will undergo neurologic checks every 4 hours, and undergo MRI the brain combo to assess for possible inciting neurologic event. Hypothyroidism--continue levothyroxine sodium 25 g by mouth daily Pulmonary emboli--hold Xarelto 20 mg by mouth daily for now. Vitamin B-12 deficiency--continue supplement fiber micrograms by mouth daily. Level of Care Telemetry Advanced Directives Existing Advance Directive: No Existing Living Will: No Existing Power of Facility Manager: No Resuscitation Status FULL RESUSCITATION VTE Prophylaxis VTE Risk Assessment Done? Y/N: Yes Risk Level: Moderate Given or contraindicated: SCD's
[2016-12-05 04:14] VITALS: BP 117/71; PULSE 80; TEMP 36.6; O2SAT 98
[2016-12-05] MEDS: ACETAMINOPHEN 325 MG TAB PO PRN ×2 (06:26→11:19)
[2016-12-05] MEDS ORDERED: LEVOTHYROXINE 25 MCG TAB PO SCH (06:30)
[2016-12-05 07:11] VITALS: BP 115/77; PULSE 82; TEMP 36.5; O2SAT 98
[2016-12-05] MEDS ORDERED: CYANOCOBALAMIN 500 MCG TAB (VIT B-12) PO SCH (09:00)
--- NOTE | 2016-12-05 09:15 | DIAGNOSTIC IMAGING REPORT ---
BRAIN COMBO CLINICAL HISTORY: RIGHT SIDE WEAKNESS mental status change COMPARISON STUDY: 04/04/2016 TECHNIQUE: Utilizing a 1.5 Chelsey magnet and dedicated coil, multiplanar, multiecho imaging of the brain was performed pre and postcontrast administration. IV administration of 8.5 mL of Gadavist contrast was uneventful. FINDINGS: No evidence for an acute ischemic insult. Diffusion-weighted images are unremarkable. Considerable chronic small vessel change of the periventricular deep white matter regions. This is unchanged in the prior exam. There are no new or interval findings. Ventricular system is midline. Postcontrast images are considered negative for an enhancing lesion. Internal artery canals are symmetric. Sella and parasellar regions are unremarkable. IMPRESSION: 1. No evidence for an acute ischemic insult. 2. Considerable chronic small vessel change throughout both cerebral hemispheres unaltered from the prior study. 3. No abnormal postcontrast enhancement The above report was generated using voice recognition software. It may contain grammatical, syntax or spelling errors. Electronically signed by: Fausto Castrejon M.D. 12/05/2016 9:14 AM Dictated Date/Time: 12/05/2016 9:11 AM
[2016-12-05] MEDS ORDERED: NURSING VERBAL MED ORDER ONE (11:00)
--- NOTE | 2016-12-05 11:07 | Discharge Instructions ---
Discharge Instructions Date of Service Dec 05, 2016. Admission Reason for Admission: Right Sided Weakness Discharge Discharge Diagnosis / Problem: symptoms of right arm numbness and weakness likely from nerve block Discharge Goals Goal(s): Decrease discomfort, Improve function, Increase independence, Improve disease control, Improve nutritional status, Learn about illness, Diagnostic testing, Therapeutic intervention, Prevent Disease Progression, Specific goals Activity Recommendations Activity Limitations: resume your previous activity Lifting Limitations: until after follow-up appointment (as instructed by ortho) . Instructions / Follow-Up Instructions / Follow-Up you have Neurologic symptoms of right arm numbness and weakness, right facial droop, and ambulatory dysfunction likely from right cervical neck block status post right rotator cuff surgery with general anesthesia and right cervical neck block your brain MRI has no stoke you have history of Pulmonary emboli, you was on Xarelto 20 mg by mouth daily , you can restart this medicine per instruction from orthopedic - you need to follow up with your primary care physician in 1 week, - take medication as instructed, never overdose or any misuse, or take with alcohol, because misuse of medicine may cause organ damage or , call your primary care physician if have questions of medicaitons. - call your primary care physician OR go to local emergency room if has any fever/chill, chest pain, shortness of breathing, nausea/vomiting/abdominal pain , facial droop/slurry speech/local weakness, or if has any questions. - fall precaution - diet as instructed - you need to follow up with your subspecialist, such as orthopedic as instructed - you should understand that it is important to follow up the above instruction , and "not following the above instruction" may cause delayed or missed care of your medical conditions which may cause permanent organ damage and even . Current Hospital Diet Patient's current hospital diet: Regular Diet Discharge Diet Recommended Diet: Regular Diet Procedures Procedures Performed: no Pending Studies Studies pending at discharge: no Laboratory Results Meds Administered (Past 24Hrs) Medications (Trade) Dose Ordered Sig/Lucas Route Start Time Stop Time Status Last Admin Dose Admin Sodium Chloride 1,000 ml @ 100 mls/hr Q10H STAT IV 12/04/16 14:24 12/05/16 00:23 DC 12/04/16 14:24 100 MLS/HR Potassium Chloride/Sodium Chloride 1,000 ml @ 50 mls/hr Q20H IV 12/04/16 19:30 01/03/17 19:29 12/04/16 19:52 50 MLS/HR Acetaminophen (Tylenol Tab) 650 mg Q4H PRN PO 12/04/16 17:45 01/03/17 17:44 12/05/16 06:26 650 MG Cyanocobalamin (Vitamin B-12 Tab) 500 mcg DAILY PO 12/05/16 09:00 01/04/17 08:59 12/05/16 07:42 500 MCG Levothyroxine Sodium (Synthroid Tab) 25 mcg DAILYBB PO 12/05/16 06:30 01/04/17 06:29 12/05/16 06:24 25 MCG Medical Emergencies . Who to Call and When: Medical Emergencies: If at any time you feel your situation is an emergency, please call 911 immediately. . Non-Emergent Contact Non-Emergency issues call your: Primary Care Provider, Specialist (othorpedic) . . "Provider Documentation" section prepared by Bennett Low. . VTE Core Measure Inpt VTE Proph given/why not?: Other Anticoagulation, SCD's
[2016-12-05 11:25] VITALS: BP 126/77; PULSE 72; TEMP 36.7; O2SAT 99
--- NOTE | 2016-12-05 11:26 | Discharge Summary ---
Discharge Summary Date of Service Dec 05, 2016. Discharge Summary Admission Date: Dec 04, 2016 at 17:47 Discharge Date: Dec 05, 2016 Discharge Disposition: Home Principal Diagnosis: right arm numbness and weakness likely from right cervical neck block Problems/Secondary Diagnoses: status post right rotator cuff surgery with general anesthesia and right cervical neck block history of Pulmonary emboli, Immunizations: Have You Had Influenza Vaccine: Unknown History of Tetanus Vaccine?: Unknown History of Pneumococcal: Unknown History of Hepatitis B Vaccine: Unknown Procedures: no Consultations: No Medication Reconciliation Continued Medications: Acetaminophen (Tylenol) 500 Mg Tab 500 MG PO DIRECTED, TAB Cyanocobalamin (Vitamin B-12) 500 Mcg Tab 500 MCG PO DAILY, TAB Levothyroxine Sodium (Synthroid) 25 Mcg Tab 25 MCG PO DAILY Lorazepam (Ativan) 1 Mg Tab 1 MG PO BID PRN for Anxiety/Agitation, TAB Methocarbamol (Robaxin) 500 Mg Tab 500 MG PO TID PRN for Muscle Spasms, #50 Rivaroxaban (Xarelto) 20 Mg Tab 20 MG PO DAILY, TAB Discharge Exam Doing well, up and walk, without dizziness, no complaining Review of Systems: Constitutional: No fever, No chills, No sweats, No weight loss, No weakness , No fatigue, No problem reported Eyes: No worsening of vision, No eye pain, No redness, No discharge, No diplopia, No problem reported ENT: No hearing loss, No unusual epistaxis, No nasal symptoms, No sore throat, No tinnitus, No dental problems, No trouble swallowing, No problem reported Respiratory: No cough, No sputum, No wheezing, No shortness of breath, No dyspnea on exertion, No dyspnea at rest, No hemoptysis, No problem reported Cardiovascular: No chest pain, No orthopnea, No PND, No edema, No claudication, No palpitations, No problem reported Abdomen: No pain, No nausea, No vomiting, No diarrhea, No constipation, No GI bleeding, No problem reported Musculoskeletal: + joint pain (with recent right shoulder surgery) Genitourinary - Female: No dysuria, No urinary frequency, No urinary urgency , No urinary incontinence, No urinary retention, No hematuria, No dysmenorrhea, No menorrhagia, No metrorrhagia, No rash, No vaginal bleeding, No vaginal discharge, No vaginal itching, No vulvodynia, No , No problem reported Neurologic: No memory loss, No paralysis, No weakness, No numbness/tingling , No vertigo, No balance problems, No problem reported Psychiatric: No depression symptoms, No anhedonism, No anxiety, No insomnia , No substance abuse, No problem reported Endocrine: No fatigue, No excessive thirst, No excessive urination, No problem reported Hematologic / Lymphatic: No abnormal bleeding/bruising, No clotting problems , No swollen lymph nodes, No night sweats, No problem reported Integumentary: No rash, No itch, No new/changing skin lesions, No color change, No bleeding, No problem reported Physical Exam: General Appearance: WD/WN, no apparent distress Eyes: normal inspection, PERRL, EOMI ENT: normal ENT inspection, hearing grossly normal, TMs normal Neck: supple, no adenopathy, thyroid normal, no JVD Respiratory/Chest: chest non-tender, normal breath sounds, no respiratory distress, no accessory muscle use, + decreased breath sounds Cardiovascular: regular rate, rhythm, no edema, no gallop, no JVD, no murmur , normal peripheral pulses Abdomen / GI: normal bowel sounds, non tender, soft, no organomegaly, no pulsatile mass Extremities: normal inspection, no calf tenderness, normal capillary refill , no pedal edema, + pertinent finding (right shoulder insulin with recent procedure) Neurologic/Psychiatric: contract associate II-XII nml as tested, no motor/sensory deficits , alert, normal mood/affect, normal reflexes Skin: normal color, warm/dry Hospital Course 70 yo was admitted on 12/04/2016 Neurologic symptoms of right arm numbness and weakness, right facial droop, and ambulatory dysfunction status post right rotator cuff surgery with general anesthesia and right cervical neck block The patient was admitted to telemetry for serial cardiac enzymes, cardiac rhythm monitoring Patient reports that the right facial droop may be preexistent, and difficulty with ambulation she has frequently for which she takes meclizine. The question is whether either the symptoms have been amplified. The patient was assessed by Dr. Johnson in the emergency department and felt that the right arm symptoms are likely secondary to the nerve block but would like her to be admitted and followed. Patient has been undergo neurologic checks every 4 hours, were unremarkable, and undergo MRI the brain combo is negative 2D echocardiogram with Dopplers was talked, but no ordered Because on the testing is not remarkable, patient's symptoms totally recovered, brain MRI was not remarkable, therefore I don't believe need to do echocardiogram for now, patient can follow-up with PCP, and fluid if needed Hypothyroidism--continue levothyroxine sodium 25 g by mouth daily Pulmonary emboli--hold Xarelto 20 mg by mouth daily upon admission, has instructed patient to restart this medicine per instruction from orthopedic Vitamin B-12 deficiency--continue supplement fiber micrograms by mouth daily. Instructions / Follow-Up you have Neurologic symptoms of right arm numbness and weakness, right facial droop, and ambulatory dysfunction likely from right cervical neck block status post right rotator cuff surgery with general anesthesia and right cervical neck block your brain MRI has no stoke you have history of Pulmonary emboli, you was on Xarelto 20 mg by mouth daily , you can restart this medicine per instruction from orthopedic - you need to follow up with your primary care physician in 1 week, - take medication as instructed, never overdose or any misuse, or take with alcohol, because misuse of medicine may cause organ damage or , call your primary care physician if have questions of medicaitons. - call your primary care physician OR go to local emergency room if has any fever/chill, chest pain, shortness of breathing, nausea/vomiting/abdominal pain , facial droop/slurry speech/local weakness, or if has any questions. - fall precaution - diet as instructed - you need to follow up with your subspecialist, such as orthopedic as instructed - you should understand that it is important to follow up the above instruction , and "not following the above instruction" may cause delayed or missed care of your medical conditions which may cause permanent organ damage and even . Total Time Spent: Greater than 30 minutes This includes examination of the patient, discharge planning, medication reconciliation, and communication with other providers. Discharge Instructions Please refer to the electronic Patient Visit Report (Discharge Instructions) for additional information. Additional Copies To Kem Johnson M.D.
[2016-12-05 11:48] VITALS: BP 126/77; PULSE 72; TEMP 36.7; O2SAT 99
== END 2016-12-05 13:59 | disposition home or self-care (01) ==
LOC: EDBD 14:08 → C.EDA 14:09 → C.MED 17:47 → ENRESERV 18:21
PROVIDERS: ADMIT Hospitalist; ATTEND Hospitalist
DX: R20.0 Anesthesia of skin (principal); R53.1 Weakness; E03.9 Hypothyroidism, unspecified; E53.8 Deficiency of other specified B group vitamins; E78.5 Hyperlipidemia, unspecified; Z98.890 Other specified postprocedural states; Z86.711 Personal history of pulmonary embolism; Z90.49 Acquired absence of other specified parts of digestive tract; Z87.891 Personal history of nicotine dependence; Z79.01 Long term (current) use of anticoagulants; Z82.49 Family history of ischemic heart disease and other diseases of the circulatory system; Z80.1 Family history of malignant neoplasm of trachea, bronchus and lung